=== PATIENT | female | born 1940 | race Caucasian/White ===

== ENCOUNTER → 2018-01-07 | Outpatient (CLI) | payer OTHER | LOC: M.RAD 14:08 | DX: M81.0 Age-related osteoporosis without current pathological fracture (principal); Z78.0 Asymptomatic menopausal state ==

== ENCOUNTER → 2018-01-15 | Outpatient (CLI) | payer OTHER | LOC: M.RAD 11:23 | DX: M25.572 Pain in left ankle and joints of left foot (principal); G89.29 Other chronic pain; Z88.2 Allergy status to sulfonamides ==